=== PATIENT | male | born 1985 | race Caucasian/White ===

== ENCOUNTER 2023-03-04 13:46 | Emergency (ER) | payer OTHER ==
[2023-03-04] MEDS ORDERED: Ketorolac Tromethamine 30 MG/ML VIAL ONE (14:31)
== END 2023-03-04 15:00 | disposition home or self-care (01) ==
LOC: ERS 13:46
DX: S46.222A Laceration of muscle, fascia and tendon of other parts of biceps, left arm, initial encounter (principal); X50.0XXA Overexertion from strenuous movement or load, initial encounter; Y93.89 Activity, other specified; Y92.65 Oil rig as the place of occurrence of the external cause
CPT/HCPCS: 96372; 99283; J1885